=== PATIENT | male | born 1985 | race Caucasian/White ===

== ENCOUNTER 2022-08-23 10:04 | Emergency (ER) | payer BC ==
[2022-08-23 11:06] LABS: CARBON DIOXIDE,CO2 28.7 mmol/L (21.0-32.0); POTASSIUM,K 4.3 mmol/L (3.5-5.1)
== END 2022-08-23 11:30 | disposition home or self-care (01) ==
LOC: MW.ED 10:04
DX: R10.84 Generalized abdominal pain (principal)
CPT/HCPCS: 36415; 80053; 81003; 83690; 85025; 99284